=== PATIENT | female | born 1960 | race Two or more races ===

== ENCOUNTER 2020-12-30 13:11 | Inpatient (IN) | payer MEDICAID, OTHER ==
[~2020-12-30] VITALS: Ht 162.6 cm; Wt 71.0 kg
[2020-12-30 14:19] LABS: Basophils # (auto) 0.1 10 ^3/uL (0-0.2); Basophils % (auto) 0.4 % (0.0-2.0); Eosinophils # (auto) 0.5 10 ^3/uL (0-0.8); Eosinophils % (auto) 3.5 % (0.0-7.0); Hematocrit 35.6 % (36.0-46.0); Hemoglobin 11.4 g/dL (12.2-16.2); Lymphocytes # (auto) 5.7 10 ^3/uL (0.4-5.4); Lymphocytes % (auto) 37.7 % (10.0-50.0); Mean Corpuscular Hemoglobin 22.4 pg (28.0-32.0); Mean Corpuscular Hgb Conc. 32.1 g/dL (32.0-36.0); Mean Corpuscular Volume 69.7 fL (80.0-100.0); Monocytes # (auto) 0.7 10 ^3/uL (0-1.3); Monocytes % (auto) 4.6 % (0.0-12.0); Neutrophils # (auto) 8.1 10 ^3/uL (1.6-8.6); Neutrophils % (auto) 53.8 % (37.0-80.0); Nucleated Red Blood Cells % 0.1 %; Red Blood Cells 5.12 10^6/uL (4.0-5.20); Red Cell Distribution Width 14.7 % (11.8-14.3)
[2020-12-30 14:30] LABS: Albumin 3.5 g/dL (3.4-5.0); Calcium 9.7 mg/dL (8.5-10.1); Potassium 4.1 mmol/L (3.5-5.1)
[2020-12-30 14:38] LABS: Bilirubin, Total 0.2 mg/dL (0.2-1.0); Total Protein 8.5 g/dL (6.4-8.2)
[2020-12-30] MEDS ORDERED: IOHEXOL 350 MG/ML 100ML IJ ONE (18:04)
[2020-12-30] MEDS ORDERED: LORazepam 2MG/ML-1ML VIAL IV ONE (21:30)
[2020-12-31] MEDS ORDERED: ONDANSETRON HCL 4 MG/2 ML VIAL IV PRN (01:45)
[2020-12-31] MEDS ORDERED: MORPHINE SULFATE INJECTION 2 MG/ML SYRG IV PRN (01:45)
[2020-12-31] MEDS ORDERED: NITROGLYCERIN 0.4 MG SL TAB SL PRN (01:45)
[2020-12-31] MEDS ORDERED: ALBUTEROL SULF 2.5 MG/0.5ML(0.5%) NEB SOLN NEB PRN (02:00)
[2020-12-31] MEDS ORDERED: DEXTROSE (50%) 50ML SYRG IV PRN (02:00)
[2020-12-31] MEDS ORDERED: hydrALAZINE HCL 20 MG/ML VL IV PRN (02:00)
[2020-12-31] MEDS: SODIUM CHLORIDE 0.9% 1,000 ML IV SCH ×3 (02:45→18:17)
[2020-12-31] MEDS ORDERED: cefTRIAXone 1GM/50ML D5W 50 ML IV ONE (02:45)
[2020-12-31] MEDS ORDERED: clonazePAM 0.5 MG TAB PO ONE (02:45)
[2020-12-31] MEDS ORDERED: AZITHROMYCIN 500MG/ 250ML 250 ML IV ONE (02:45)
[2020-12-31] MEDS: InsuLIN REG 1unit/0.01ml Soln (100units/ml) SC SCH ×4 (06:00→23:14)
[2020-12-31] MEDS: ACCU-CHEK COMFORT CURVE STRIP VI SCH ×4 (06:16→23:13)
[2020-12-31 08:48] LABS: Basophils # (auto) 0.1 10 ^3/uL (0-0.2); Basophils % (auto) 0.8 % (0.0-2.0); Eosinophils # (auto) 0.5 10 ^3/uL (0-0.8); Eosinophils % (auto) 3.8 % (0.0-7.0); Lymphocytes # (auto) 5.1 10 ^3/uL (0.4-5.4); Monocytes # (auto) 0.8 10 ^3/uL (0-1.3)
[2020-12-31 08:50] VITALS: BP 127/77
[2020-12-31 08:50] LABS: Hematocrit 34.3 % (36.0-46.0); Hemoglobin 10.8 g/dL (12.2-16.2); Lymphocytes % (auto) 38.2 % (10.0-50.0); Mean Corpuscular Hemoglobin 22.1 pg (28.0-32.0); Mean Corpuscular Hgb Conc. 31.5 g/dL (32.0-36.0); Neutrophils # (auto) 6.9 10 ^3/uL (1.6-8.6); Neutrophils % (auto) 51.2 % (37.0-80.0); Red Blood Cells 4.89 10^6/uL (4.0-5.20); Red Cell Distribution Width 14.8 % (11.8-14.3); White Blood Cell 13.4 10^3/uL (4.4-10.8)
[2020-12-31 09:03] LABS: Calcium 8.9 mg/dL (8.5-10.1)
[2020-12-31] MEDS: cefTRIAXone 1GM/50ML D5W 50 ML IV SCH (09:06)
[2020-12-31] MEDS: ZINC SULFATE 220mg CAP or TAB PO SCH (10:41)
[2020-12-31] MEDS: AZITHROMYCIN 500MG/ 250ML 250 ML IV SCH (10:41)
[2020-12-31] MEDS: MULTIPLE VITAMIN TAB PO SCH (10:42)
[2020-12-31] MEDS: ENOXAPARIN SOD 40 MG/0.4 ML SYRINGE SC SCH (10:42)
[2020-12-31] MEDS: ASCORBIC ACID 500 MG TAB PO SCH ×2 (10:42→21:06)
[2020-12-31 12:55] LABS: INR 0.97 (0.9-1.15); Partial Thromboplastin Time 33.7 sec (23.6-33.0)
[2020-12-31] MEDS ORDERED: ACETAMINOPHEN 325 MG TAB PO PRN (20:15)
[2020-12-31] MEDS: methylPREDNISolone SOD SUCC 40 MG/ML VL IV SCH (21:06)
[2020-12-31] MEDS: ALPRAZolam 0.25 MG TAB PO PRN (21:17)
[2020-12-31 22:40] VITALS: BP 136/78
[2020-12-31 22:53] VITALS: BP 136/79
[2020-12-31 23:14] VITALS: BP 136/79
[2020-12-31] MEDS ORDERED: TEMAZEPAM 15 MG CAP PO ONE (23:15)
[2020-12-31] MEDS ORDERED: MULT-733 OR (23:37)
[2020-12-31] MEDS ORDERED: GABA-339 PO (23:37)
[2020-12-31] MEDS ORDERED: MELA3TAB27 PO (23:37)
[2020-12-31] MEDS ORDERED: BUPR150T18 PO (23:37)
[2020-12-31] MEDS ORDERED: ACET-1304 PO (23:37)
[2020-12-31] MEDS ORDERED: CYAN-17 PO (23:37)
[2021-01-01] MEDS: SODIUM CHLORIDE 0.9% 1,000 ML IV SCH ×2 (04:57→16:27)
[2021-01-01 05:30] VITALS: BP 129/78
[2021-01-01] MEDS: ACCU-CHEK COMFORT CURVE STRIP VI SCH ×2 (05:53→11:53)
[2021-01-01] MEDS: InsuLIN REG 1unit/0.01ml Soln (100units/ml) SC SCH ×2 (05:53→11:53)
[2021-01-01 09:00] VITALS: BP 142/75
[2021-01-01] MEDS: cefTRIAXone 1GM/50ML D5W 50 ML IV SCH (09:48)
[2021-01-01] MEDS: ENOXAPARIN SOD 40 MG/0.4 ML SYRINGE SC SCH (09:49)
[2021-01-01] MEDS: AZITHROMYCIN 500MG/ 250ML 250 ML IV SCH (09:50)
[2021-01-01] MEDS: NICOTINE 21MG/24 HR TOPICAL PATCH TD SCH (09:51)
[2021-01-01] MEDS: ALPRAZolam 0.25 MG TAB PO PRN ×2 (09:52→20:40)
[2021-01-01] MEDS: MULTIPLE VITAMIN TAB PO SCH (10:09)
[2021-01-01] MEDS: ASCORBIC ACID 500 MG TAB PO SCH ×2 (10:09→22:15)
[2021-01-01] MEDS: ZINC SULFATE 220mg CAP or TAB PO SCH (10:10)
[2021-01-01] MEDS: methylPREDNISolone SOD SUCC 40 MG/ML VL IV SCH ×2 (10:10→22:15)
[2021-01-01] MEDS ORDERED: IOHEXOL 300 MG/ML 100ML BOTTLE IJ ONE (10:46)
[2021-01-01 13:00] VITALS: BP 136/74
[2021-01-01] MEDS: MORPHINE SULFATE 4 MG/ML SYR/VIAL IV PRN ×2 (13:48→18:20)
[2021-01-01] MEDS ORDERED: GADOTERATE MEG 7.5 MMOL/15ml INJ (0.5MMOL/ml) IV ONE (14:27)
[2021-01-01 22:00] VITALS: BP 149/80
[2021-01-02] MEDS: SODIUM CHLORIDE 0.9% 1,000 ML IV SCH ×2 (00:54→17:02)
[2021-01-02 05:00] VITALS: BP 120/76
[2021-01-02] MEDS: MORPHINE SULFATE 4 MG/ML SYR/VIAL IV PRN ×2 (05:43→12:30)
[2021-01-02 09:00] VITALS: BP 144/77
[2021-01-02] MEDS: methylPREDNISolone SOD SUCC 40 MG/ML VL IV SCH ×2 (09:25→22:29)
[2021-01-02] MEDS: ENOXAPARIN SOD 40 MG/0.4 ML SYRINGE SC SCH (09:25)
[2021-01-02] MEDS: ALPRAZolam 0.25 MG TAB PO PRN ×2 (09:26→22:29)
[2021-01-02] MEDS: ASCORBIC ACID 500 MG TAB PO SCH ×2 (09:26→22:29)
[2021-01-02] MEDS: MULTIPLE VITAMIN TAB PO SCH (09:27)
[2021-01-02] MEDS: ZINC SULFATE 220mg CAP or TAB PO SCH (09:27)
[2021-01-02] MEDS: AZITHROMYCIN 500MG/ 250ML 250 ML IV SCH (09:29)
[2021-01-02] MEDS: NICOTINE 21MG/24 HR TOPICAL PATCH TD SCH (09:29)
[2021-01-02] MEDS: cefTRIAXone 1GM/50ML D5W 50 ML IV SCH (09:30)
[2021-01-02 13:00] VITALS: BP 133/78
[2021-01-02 17:00] VITALS: BP 139/77
[2021-01-02] MEDS: MORPHINE SULFATE INJECTION 2 MG/ML SYRG IV PRN (17:16)
[2021-01-02 21:28] LABS: Basophils # (auto) 0 10 ^3/uL (0-0.2); Basophils % (auto) 0.2 % (0.0-2.0); Eosinophils # (auto) 0 10 ^3/uL (0-0.8); Hemoglobin 10.2 g/dL (12.2-16.2); Mean Corpuscular Hemoglobin 21.5 pg (28.0-32.0); Mean Corpuscular Hgb Conc. 30.9 g/dL (32.0-36.0); Red Blood Cells 4.74 10^6/uL (4.0-5.20)
[2021-01-02 21:29] LABS: Hematocrit 32.9 % (36.0-46.0); Lymphocytes # (auto) 4.2 10 ^3/uL (0.4-5.4); Lymphocytes % (auto) 23.5 % (10.0-50.0); Mean Corpuscular Volume 69.5 fL (80.0-100.0); Monocytes % (auto) 5.9 % (0.0-12.0); Neutrophils # (auto) 12.5 10 ^3/uL (1.6-8.6); Neutrophils % (auto) 70.4 % (37.0-80.0); White Blood Cell 17.7 10^3/uL (4.4-10.8)
[2021-01-02 21:36] LABS: BUN/Creatinine Ratio 16.4; Calcium 9.2 mg/dL (8.5-10.1); Potassium 3.9 mmol/L (3.5-5.1)
[2021-01-02 21:51] VITALS: BP 141/75
[2021-01-03] MEDS: MORPHINE SULFATE INJECTION 2 MG/ML SYRG IV PRN ×2 (02:49→12:19)
[2021-01-03] MEDS: SODIUM CHLORIDE 0.9% 1,000 ML IV SCH ×2 (02:59→12:07)
[2021-01-03 05:00] VITALS: BP 129/57
[2021-01-03 08:13] VITALS: BP 129/57
[2021-01-03] MEDS: MULTIPLE VITAMIN TAB PO SCH (08:39)
[2021-01-03] MEDS: ENOXAPARIN SOD 40 MG/0.4 ML SYRINGE SC SCH (08:39)
[2021-01-03] MEDS: ASCORBIC ACID 500 MG TAB PO SCH (08:39)
[2021-01-03] MEDS: NICOTINE 21MG/24 HR TOPICAL PATCH TD SCH (08:39)
[2021-01-03] MEDS: ZINC SULFATE 220mg CAP or TAB PO SCH (08:39)
[2021-01-03] MEDS: methylPREDNISolone SOD SUCC 40 MG/ML VL IV SCH (08:40)
[2021-01-03] MEDS: cefTRIAXone 1GM/50ML D5W 50 ML IV SCH (08:40)
[2021-01-03] MEDS: ALPRAZolam 0.25 MG TAB PO PRN (08:44)
[2021-01-03 09:00] VITALS: BP 136/84
[2021-01-03] MEDS: AZITHROMYCIN 500MG/ 250ML 250 ML IV SCH (09:40)
[2021-01-03 13:00] VITALS: BP 128/81
[2021-01-03] MEDS ORDERED: NIC21P TD (14:32)
[2021-01-03] MEDS ORDERED: ALPR0.25 PO (14:32)
[2021-01-03] MEDS ORDERED: PRED20TA2 PO (14:32)
[2021-01-03] MEDS ORDERED: LEVO500T31 PO (14:32)
[2021-01-03] MEDS ORDERED: CYAN-17 PO (14:32)
[2021-01-03] MEDS ORDERED: GABA-339 PO (14:32)
[2021-01-03] MEDS ORDERED: BUPR150T18 PO (14:32)
[2021-01-03 15:28] LABS: Eosinophils # (auto) 0 10 ^3/uL (0-0.8); Eosinophils % (auto) 0.1 % (0.0-7.0); Mean Corpuscular Volume 70.2 fL (80.0-100.0); Neutrophils # (auto) 14.3 10 ^3/uL (1.6-8.6); Nucleated Red Blood Cells % 0.1 %; White Blood Cell 17.3 10^3/uL (4.4-10.8)
[2021-01-03 15:31] LABS: Basophils # (auto) 0 10 ^3/uL (0-0.2); Basophils % (auto) 0.3 % (0.0-2.0); Hemoglobin 10.6 g/dL (12.2-16.2); Lymphocytes # (auto) 2.6 10 ^3/uL (0.4-5.4); Lymphocytes % (auto) 14.8 % (10.0-50.0); Mean Corpuscular Hemoglobin 22.4 pg (28.0-32.0); Mean Corpuscular Hgb Conc. 31.9 g/dL (32.0-36.0); Monocytes # (auto) 0.4 10 ^3/uL (0-1.3); Monocytes % (auto) 2.1 % (0.0-12.0); Neutrophils % (auto) 82.7 % (37.0-80.0); Red Blood Cells 4.71 10^6/uL (4.0-5.20); Red Cell Distribution Width 14.6 % (11.8-14.3)
== END 2021-01-03 16:40 | disposition home or self-care (01) | DRG 139 ==
LOC: ER 13:11 → TELE 12-31 01:43 → TELE-WESTW 12-31 21:56
PROVIDERS: ADMIT Hospitalist; ATTEND Hospitalist
DX: J18.9 Pneumonia, unspecified organism (principal); J96.01 Acute respiratory failure with hypoxia; J43.9 Emphysema, unspecified; I10 Essential (primary) hypertension; F17.200 Nicotine dependence, unspecified, uncomplicated; F41.9 Anxiety disorder, unspecified; Z20.822 Contact with and (suspected) exposure to COVID-19; Z80.0 Family history of malignant neoplasm of digestive organs; Z80.1 Family history of malignant neoplasm of trachea, bronchus and lung; Z85.3 Personal history of malignant neoplasm of breast; Z85.42 Personal history of malignant neoplasm of other parts of uterus; Z90.710 Acquired absence of both cervix and uterus; Z88.8 Allergy status to other drugs, medicaments and biological substances; J44.0 Chronic obstructive pulmonary disease with (acute) lower respiratory infection; J44.1 Chronic obstructive pulmonary disease with (acute) exacerbation
CPT/HCPCS: 36415; 70553; 71045; 71275; 74177; 78306; 80048; 80053; 82728; 82962; 83605; 83880; 84484; 85025; 85048; 85610; 85730; 86141; 87426; 87804; 93005; 93306; 96374; G0378; J0696